=== PATIENT | female | born 1950 | race Asian ===

== ENCOUNTER 2020-08-10 07:10 | Inpatient (IN) ==
[2020-08-10] MEDS ORDERED: 0.9 % Sodium Chloride 1,000 ML IVC ONE ×2 (07:25→10:09)
[2020-08-10] MEDS ORDERED: Azithromycin 500 MG in 0.9 % Sodium Chloride 250 ML IVPB ONE (07:55)
[2020-08-10] MEDS ORDERED: cefTRIAXone 1,000 MG in Water for inj. (sterile) 10 ML IVP ONE (07:55)
[2020-08-10 08:20] LABS: Basophils % 0.1 %; Hematocrit 27.4 % (35.3-44.9); Hemoglobin 9.3 g/dL (11.5-15.4); Immature Granulocytes % 0.4 % (0-4); Lymphocytes % 13.4 %; Mean Corpuscular HGB Conc 33.9 g/dL (31.6-35.5); Mean Corpuscular Hemoglobin 29.5 pg (28.0-33.3); Mean Platelet Volume 10.3 fL (9.4-12.4); Monocytes # 0.3 K/mcL (0.0-1.3); Monocytes % 3.5 %; Neutrophils # 5.9 K/mcL (1.6-8.9); Platelet Count 211 K/mcL (140-400); Red Blood Count 3.15 M/mcL (3.82-4.97); Red Cell Distribution Width 13.7 % (11.5-14.5); Segmented Neutrophils % 82.6 %; White Blood Count 7.2 K/mcL (4.3-11.1)
[2020-08-10 08:41] LABS: BUN/Creatinine Ratio 15 (6-26); Blood Urea Nitrogen 39 mg/dL (8-23); Carbon Dioxide 16 mEq/L (23-29); Chloride 95 mEq/L (98-107); Glucose 112 mg/dL (70-105); Osmolality,Calculated 276 (280-300); Potassium 4.1 mEq/L (3.5-5.1); Sodium 128 mEq/L (136-145); Troponin I 0.04 ng/mL (< 0.04); eGFR For African Americans 23 (> 60); eGFR For Non-African Americans 19 (> 60)
[2020-08-10] MEDS ORDERED: Aspirin 325 MG TABLET PO ONE (08:44)
[2020-08-10] MEDS ORDERED: Aspirin 81 MG TAB.CHEW PO STA (10:00)
[2020-08-10] MEDS: Calcium Gluconate 1gm/50mL 1 GM/50 ML BAG IVPB SCH ×6 (10:45→20:39)
[2020-08-10] MEDS ORDERED: Naloxone 0.4 MG/ML INJ IVP PRN (11:28)
[2020-08-10 11:29] LABS: VBG Ionized Calcium 0.64 mmol/L (1.15-1.35)
[2020-08-10 11:40] LABS: Albumin 3.3 g/dL (3.5-5.7); Albumin/Globulin Ratio 0.9 (1.1-2.2); Bilirubin,Direct 0.1 mg/dL (0.0-0.2); Bilirubin,Indirect 0.2 mg/dL (0.0-1.0); Bilirubin,Total 0.3 mg/dL (0.3-1.0); Calcium 5.8 mg/dL (8.6-10.3); Globulin 3.5 g/dL (2.4-3.5); Magnesium 1.8 mg/dL (1.6-2.6); Phosphorous 5.4 mg/dL (2.7-4.5); Potassium 4.3 mEq/L (3.5-5.1); Total Protein 6.8 g/dL (6.4-8.9)
[2020-08-10 11:46] LABS: Acetaminophen 17 mcg/mL (10-20); Salicylate < 2.5 mg/dL (15.0-30.0)
[2020-08-10 11:49] LABS: INR 1.1; Prothrombin Time 12.6 Seconds (9.4-12.1)
[2020-08-10 12:12] LABS: Adenovirus Not Detected (Not Detect); Bordetella Pertussis Not Detected (Not Detect); Chlamydophila pneumoniae Not Detected (Not Detect); Coronavirus 229E Not Detected (Not Detect); Coronavirus HKU1 Not Detected (Not Detect); Coronavirus NL63 Not Detected (Not Detect); Coronavirus OC43 Not Detected (Not Detect); Human Metapneumovirus Not Detected (Not Detect); Human Rhinovirus/Enterovirus Not Detected (Not Detect); Influenza A Subtype 2009 H1 Not Detected (Not Detect); Influenza B Not Detected (Not Detect); Mycoplasma pneumoniae Not Detected (Not Detect); Parainfluenza Virus 1 Not Detected (Not Detect); Parainfluenza Virus 2 Not Detected (Not Detect); Parainfluenza Virus 3 Not Detected (Not Detect); Parainfluenza Virus 4 Not Detected (Not Detect); Respiratory Syncytial Virus Not Detected (Not Detect); SARS-CoV-2 Not Detected (Not Detect)
[2020-08-10 13:51] LABS: Bacteria,Urine Few per hpf (None-Few); Bilirubin,Urine Negative (Negative); Blood,Urine Small (Negative); Clarity,Urine Clear (Clear); Color,Urine Colorless (Yellow); Glucose,Urine (UA) Normal (Normal); Ketones,Urine Negative (Negative); Leukocyte Esterase,Urine Negative (Negative); Mucus,Urine Few per lpf (None-Few); Nitrite,Urine Negative (Negative); PH,Urine 6.5 pH Units (5.0-8.0); Protein,Urine 100 mg/dL (Neg-Trace); RBC,Urine 0-3 per hpf (0-3); Squamous Epithelial Cell,Urine Few per hpf (None-Few); Urobilinogen,Urine Normal (Normal); WBC,Urine 0-3 per hpf (0-3)
[2020-08-10 14:30] LABS: Troponin I 0.04 ng/mL (< 0.04)
[2020-08-10 16:38] LABS: Potassium 3.9 mEq/L (3.5-5.1)
[2020-08-10] MEDS ORDERED: 0.9 % Sodium Chloride 1,000 ML IVC SCH (17:45)
[2020-08-10 18:19] LABS: Troponin I 0.03 ng/mL (< 0.04)
[2020-08-10] MEDS: *HR* Heparin 5,000 UNIT/ML VIAL SQ SCH ×2 (20:39→21:47)
[2020-08-10] MEDS: Ipratropium/Albuterol Neb 3 ML IH PRN (21:45)
[2020-08-11 04:41] LABS: VBG Ionized Calcium 0.78 mmol/L (1.15-1.35)
[2020-08-11 04:57] LABS: Calcium 6.5 mg/dL (8.6-10.3); Potassium 3.8 mEq/L (3.5-5.1)
[2020-08-11] MEDS ORDERED: Calcium Gluconate 1gm/50mL 1 GM/50 ML BAG IVPB ONE (06:03)
[2020-08-11] MEDS: *HR* Heparin 5,000 UNIT/ML VIAL SQ SCH ×3 (06:19→19:47)
[2020-08-11] MEDS: Acetaminophen 325 MG TABLET PO PRN ×2 (06:34)
[2020-08-11] MEDS: Ipratropium/Albuterol Neb 3 ML IH PRN (06:38)
[2020-08-11] MEDS: cefTRIAXone 1,000 MG in 0.9 % Sodium Chloride Mini Bag 100 ML IVP SCH (08:15)
[2020-08-11] MEDS: Azithromycin 500 MG in 0.9 % Sodium Chloride 250 ML IVPB SCH (09:03)
[2020-08-11] MEDS: Calcium Gluconate 1gm/50mL 1 GM/50 ML BAG IVPB PRN ×3 (10:13→13:05)
[2020-08-11] MEDS: Aspirin Enteric Coated 81 MG Tablet PO SCH (10:14)
[2020-08-11] MEDS: amLODIPine 5 MG TABLET PO SCH (10:14)
[2020-08-11] MEDS: 0.9 % Sodium Chloride 1,000 ML IVC SCH (11:49)
[2020-08-11 14:29] LABS: C-Reactive Protein > 300 mg/L (Less than 10); Ferritin > 1500 ng/mL (10-120); Lactate Dehydrogenase 819 Units/L (140-271)
[2020-08-12] MEDS: Acetaminophen 325 MG TABLET PO PRN ×2 (00:51→10:12)
[2020-08-12 00:59] LABS: Basophils % 0.2 %; Hematocrit 26.5 % (35.3-44.9); Hemoglobin 8.8 g/dL (11.5-15.4); Immature Granulocytes % 0.9 % (0-4); Lymphocytes % 11.8 %; Mean Corpuscular HGB Conc 33.2 g/dL (31.6-35.5); Mean Corpuscular Hemoglobin 29.5 pg (28.0-33.3); Mean Corpuscular Volume 88.9 fL (83.0-100.0); Mean Platelet Volume 9.8 fL (9.4-12.4); Monocytes # 0.3 K/mcL (0.0-1.3); Monocytes % 3.5 %; Neutrophils # 7.3 K/mcL (1.6-8.9); Platelet Count 290 K/mcL (140-400); Red Blood Count 2.98 M/mcL (3.82-4.97); Red Cell Distribution Width 13.9 % (11.5-14.5); Segmented Neutrophils % 83.6 %; White Blood Count 8.8 K/mcL (4.3-11.1)
[2020-08-12 01:18] LABS: Calcium 7.4 mg/dL (8.6-10.3); Potassium 3.8 mEq/L (3.5-5.1)
[2020-08-12] MEDS: *HR* Heparin 5,000 UNIT/ML VIAL SQ SCH ×2 (05:46→13:26)
[2020-08-12] MEDS: 0.9 % Sodium Chloride 1,000 ML IVC SCH ×2 (05:46→14:11)
[2020-08-12] MEDS: Calcium Gluconate 1gm/50mL 1 GM/50 ML BAG IVPB SCH (08:49)
[2020-08-12] MEDS: amLODIPine 5 MG TABLET PO SCH (10:12)
[2020-08-12] MEDS: Aspirin Enteric Coated 81 MG Tablet PO SCH (10:12)
[2020-08-12] MEDS: cefTRIAXone 1,000 MG in 0.9 % Sodium Chloride Mini Bag 100 ML IVP SCH (10:12)
[2020-08-12] MEDS: Azithromycin 500 MG in 0.9 % Sodium Chloride 250 ML IVPB SCH (10:13)
[2020-08-12 12:05] LABS: Adenovirus Not Detected (Not Detect); Bordetella Pertussis Not Detected (Not Detect); Chlamydophila pneumoniae Not Detected (Not Detect); Coronavirus 229E Not Detected (Not Detect); Coronavirus HKU1 Not Detected (Not Detect); Coronavirus NL63 Not Detected (Not Detect); Coronavirus OC43 Not Detected (Not Detect); Human Metapneumovirus Not Detected (Not Detect); Human Rhinovirus/Enterovirus Not Detected (Not Detect); Influenza A Subtype 2009 H1 Not Detected (Not Detect); Influenza B Not Detected (Not Detect); Mycoplasma pneumoniae Not Detected (Not Detect); Parainfluenza Virus 1 Not Detected (Not Detect); Parainfluenza Virus 2 Not Detected (Not Detect); Parainfluenza Virus 3 Not Detected (Not Detect); Parainfluenza Virus 4 Not Detected (Not Detect); Respiratory Syncytial Virus Not Detected (Not Detect); SARS-CoV-2 Not Detected (Not Detect)
[2020-08-13 05:42] LABS: Basophils % 0.1 %; Hematocrit 27.7 % (35.3-44.9); Immature Granulocytes % 1.2 % (0-4); Lymphocytes # 0.8 K/mcL (0.6-4.6); Lymphocytes % 8.8 %; Mean Corpuscular HGB Conc 32.5 g/dL (31.6-35.5); Mean Corpuscular Hemoglobin 29.9 pg (28.0-33.3); Mean Platelet Volume 10.3 fL (9.4-12.4); Monocytes # 0.3 K/mcL (0.0-1.3); Monocytes % 3.6 %; Neutrophils # 7.8 K/mcL (1.6-8.9); Platelet Count 309 K/mcL (140-400); Red Blood Count 3.01 M/mcL (3.82-4.97); Red Cell Distribution Width 14.4 % (11.5-14.5); Segmented Neutrophils % 86.3 %; White Blood Count 9.1 K/mcL (4.3-11.1)
[2020-08-13 05:58] LABS: BUN/Creatinine Ratio 14 (6-26); Blood Urea Nitrogen 26 mg/dL (8-23); Calcium 7.4 mg/dL (8.6-10.3); Carbon Dioxide 14 mEq/L (23-29); Chloride 102 mEq/L (98-107); Glucose 85 mg/dL (70-105); Lactate Dehydrogenase 996 Units/L (140-271); Osmolality,Calculated 276 (280-300); Sodium 131 mEq/L (136-145); eGFR For African Americans 33 (> 60); eGFR For Non-African Americans 27 (> 60)
[2020-08-13] MEDS: *HR* Enoxaparin 30 MG/0.3 ML SYRINGE SQ SCH (06:08)
[2020-08-13 06:17] LABS: Ferritin > 1500 ng/mL (10-120)
[2020-08-13] MEDS: Aspirin Enteric Coated 81 MG Tablet PO SCH (07:50)
[2020-08-13] MEDS: amLODIPine 5 MG TABLET PO SCH (07:51)
[2020-08-13] MEDS: Azithromycin 500 MG in 0.9 % Sodium Chloride 250 ML IVPB SCH (07:51)
[2020-08-13] MEDS: Acetaminophen 325 MG TABLET PO PRN (07:58)
[2020-08-13 08:42] LABS: ABG Base Excess -11 mEq/L (-2 to 3); ABG HCO3 13 mEq/L (21-27); ABG Oxygen Saturation 94 % (95-98); ABG PCO2 21 mmHg (35-45); ABG PO2 66 mmHg (85-104); ABG TCO2 13 mEq/L (20-26)
[2020-08-13] MEDS: cefTRIAXone 1,000 MG in 0.9 % Sodium Chloride Mini Bag 100 ML IVP SCH (09:55)
[2020-08-13] MEDS: Ipratropium 1 PUFF INHALER IH SCH ×4 (11:24→23:08)
[2020-08-13] MEDS ORDERED: Dexamethasone 4 MG/ML VIAL IVP SCH (14:02)
[2020-08-14] MEDS: Ipratropium 1 PUFF INHALER IH SCH ×5 (03:28→19:36)
[2020-08-14] MEDS: *HR* Enoxaparin 30 MG/0.3 ML SYRINGE SQ SCH (04:18)
[2020-08-14 05:49] LABS: Basophils % 0.2 %; Eosinophils % 0.1 %; Hemoglobin 9.4 g/dL (11.5-15.4); Immature Granulocytes % 1.4 % (0-4); Lymphocytes # 0.9 K/mcL (0.6-4.6); Mean Corpuscular HGB Conc 33.6 g/dL (31.6-35.5); Mean Corpuscular Hemoglobin 30.6 pg (28.0-33.3); Mean Corpuscular Volume 91.2 fL (83.0-100.0); Mean Platelet Volume 10.1 fL (9.4-12.4); Monocytes # 0.3 K/mcL (0.0-1.3); Monocytes % 3.5 %; Neutrophils # 8.2 K/mcL (1.6-8.9); Platelet Count 355 K/mcL (140-400); Red Blood Count 3.07 M/mcL (3.82-4.97); Red Cell Distribution Width 14.7 % (11.5-14.5); Segmented Neutrophils % 85.8 %; White Blood Count 9.5 K/mcL (4.3-11.1)
[2020-08-14] MEDS: Aspirin Enteric Coated 81 MG Tablet PO SCH (10:13)
[2020-08-14] MEDS: amLODIPine 5 MG TABLET PO SCH (10:14)
[2020-08-14] MEDS: Dexamethasone 4 MG/ML VIAL IVP SCH (10:15)
[2020-08-14 10:42] LABS: Albumin/Globulin Ratio 0.8 (1.1-2.2); Bilirubin,Total 0.5 mg/dL (0.3-1.0); Calcium 7.4 mg/dL (8.6-10.3); Globulin 3.9 g/dL (2.4-3.5); Potassium 4.2 mEq/L (3.5-5.1); Total Protein 6.9 g/dL (6.4-8.9)
[2020-08-14] MEDS: cefTRIAXone 1,000 MG in Water for inj. (sterile) 10 ML IVP SCH (12:09)
[2020-08-14 12:51] LABS: Adenovirus Not Detected (Not Detect); Bordetella Pertussis Not Detected (Not Detect); Chlamydophila pneumoniae Not Detected (Not Detect); Coronavirus 229E Not Detected (Not Detect); Coronavirus HKU1 Not Detected (Not Detect); Coronavirus NL63 Not Detected (Not Detect); Coronavirus OC43 Not Detected (Not Detect); Human Metapneumovirus Not Detected (Not Detect); Human Rhinovirus/Enterovirus Not Detected (Not Detect); Influenza A Subtype 2009 H1 Not Detected (Not Detect); Influenza B Not Detected (Not Detect); Mycoplasma pneumoniae Not Detected (Not Detect); Parainfluenza Virus 1 Not Detected (Not Detect); Parainfluenza Virus 2 Not Detected (Not Detect); Parainfluenza Virus 3 Not Detected (Not Detect); Parainfluenza Virus 4 Not Detected (Not Detect); Respiratory Syncytial Virus Not Detected (Not Detect); SARS-CoV-2 Not Detected (Not Detect)
[2020-08-14] MEDS ORDERED: Sodium Bicarbonate 150 MEQ in D5% in Water 1,000 ML IVC SCH ×2 (16:00→16:45)
[2020-08-14] MEDS ORDERED: Acetaminophen 325 MG TABLET PO PRN (16:40)
[2020-08-14] MEDS ORDERED: Furosemide 20 MG/2 ML VIAL IVP SCH (18:45)
[2020-08-15] MEDS: Ipratropium 1 PUFF INHALER IH SCH ×5 (00:08→15:33)
[2020-08-15 01:08] LABS: Basophils % 0.2 %; Hemoglobin 8.9 g/dL (11.5-15.4); Immature Granulocytes % 1.2 % (0-4); Lymphocytes # 0.7 K/mcL (0.6-4.6); Lymphocytes % 8.4 %; Mean Corpuscular HGB Conc 31.8 g/dL (31.6-35.5); Mean Corpuscular Hemoglobin 30.2 pg (28.0-33.3); Mean Corpuscular Volume 94.9 fL (83.0-100.0); Monocytes # 0.2 K/mcL (0.0-1.3); Monocytes % 1.9 %; Neutrophils # 7.6 K/mcL (1.6-8.9); Platelet Count 358 K/mcL (140-400); Red Blood Count 2.95 M/mcL (3.82-4.97); Red Cell Distribution Width 14.9 % (11.5-14.5); Segmented Neutrophils % 88.3 %; White Blood Count 8.6 K/mcL (4.3-11.1)
[2020-08-15 01:23] LABS: Albumin/Globulin Ratio 0.9 (1.1-2.2); Bilirubin,Total 0.3 mg/dL (0.3-1.0); Calcium 7.1 mg/dL (8.6-10.3); Globulin 3.5 g/dL (2.4-3.5); Potassium 4.9 mEq/L (3.5-5.1); Total Protein 6.5 g/dL (6.4-8.9)
[2020-08-15 02:23] LABS: Platelet Estimate Normal (Normal)
[2020-08-15] MEDS: *HR* Enoxaparin 30 MG/0.3 ML SYRINGE SQ SCH (05:27)
[2020-08-15 08:08] LABS: VBG Ionized Calcium 0.89 mmol/L (1.15-1.35)
[2020-08-15] MEDS: Aspirin Enteric Coated 81 MG Tablet PO SCH (08:25)
[2020-08-15] MEDS: Dexamethasone 4 MG/ML VIAL IVP SCH (08:26)
[2020-08-15] MEDS: amLODIPine 5 MG TABLET PO SCH (08:27)
[2020-08-15] MEDS: cefTRIAXone 1,000 MG in Water for inj. (sterile) 10 ML IVP SCH (08:28)
[2020-08-15 08:38] LABS: ABG Base Excess -8 mEq/L (-2 to 3); ABG HCO3 15 mEq/L (21-27); ABG Oxygen Saturation 98 % (95-98); ABG PCO2 24 mmHg (35-45); ABG PH 7.41 pH Units (7.32-7.45); ABG PO2 103 mmHg (85-104); ABG TCO2 16 mEq/L (20-26)
[2020-08-15 09:11] LABS: D-Dimer 1514 ng/mLFEU (0-500)
[2020-08-15 09:12] LABS: Fibrinogen 793 mg/dL (169-393)
[2020-08-15 09:57] LABS: Lactate Dehydrogenase 664 Units/L (140-271)
[2020-08-15 11:14] VITALS: BP 138/81
[2020-08-15 11:57] LABS: Ferritin > 1500 ng/mL (10-120)
[2020-08-15] MEDS: Calcium Gluconate 1gm/50mL 1 GM/50 ML BAG IVPB SCH ×2 (12:03→13:02)
[2020-08-18 22:49] LABS: Alpha 2 Globulin (PEP) 1.32 g/dL (0.48-1.05); Beta Globulin (PEP) 0.85 g/dL (0.48-1.10)
[2020-08-18 22:51] LABS: IFE Reflexed NOT DONE
== END 2020-08-15 16:00 | disposition home or self-care (01) | DRG 193 ==
LOC: EMEROOARM 07:10 → 3ANU 07:10 → CDU 07:10 → SUATTDRO 08-11 16:40 → 2NENU 08-12 14:14
PROVIDERS: ADMIT Student in an Organized Health Care Education/Training Program; ATTEND Family Medicine